=== PATIENT | male | born 1955 | race Caucasian/White ===

== ENCOUNTER 2022-12-25 08:26 | Inpatient (IN) | payer MEDICARE ==
[2022-12-25] MEDS ORDERED: Ipratropium/Albuterol 3 ML NEB NEB PRN (10:56)
[2022-12-25] MEDS ORDERED: Calcium Carbonate 500 MG ChewTAB PO PRN (10:58)
[2022-12-25] MEDS ORDERED: Senokot S 8.6-50 MG TAB PO PRN (10:58)
[2022-12-25] MEDS ORDERED: Acetaminophen 325 MG TAB PO PRN (10:58)
[2022-12-25] MEDS ORDERED: Lorazepam 1 MG TAB PO PRN (11:01)
[2022-12-25] MEDS ORDERED: Nicotine 14 MG PATCH TD PRN (11:01)
[2022-12-25] MEDS ORDERED: Lorazepam 2 MG/ML VIAL IM PRN (11:01)
[2022-12-25] MEDS ORDERED: Nitroglycerin 0.4 MG TAB (25 Tab Bottle) SL PRN (11:03)
[2022-12-25] MEDS ORDERED: Electrolyte Replacement Protocol 1 EACH FS SCH (11:15)
[2022-12-25] MEDS ORDERED: Folic Acid 1 MG TAB PO SCH (11:30)
[2022-12-25] MEDS ORDERED: Multivit, Therapeutic 1 TAB PO SCH (12:00)
[2022-12-25 12:05] LABS: Anion Gap 15 mmol/L (10-20); BUN (Urea Nitrogen) 7 mg/dL (8.4-25.7); Calc. Creatinine Clearance 0 mL/min (70-130); Calcium 9.3 mg/dL (7.8-10.44); Carbon Dioxide 23 mmol/L (23-31); Chloride 89 mmol/L (98-107); Estimated GFR 100; Glucose 140 mg/dL (80-115); Magnesium 2.1 mg/dL (1.6-2.6); Potassium 3.9 mmol/L (3.5-5.1); Sodium 123 mmol/L (136-145)
[2022-12-25 12:08] LABS: Troponin I Less than 0.010 ng/mL (< 0.028)
[2022-12-25] MEDS ORDERED: Magnesium 2 GM/50 ML(in water) 2 GM in Premix Bag 1 BAG IVPB SCH (12:15)
[2022-12-25] MEDS ORDERED: Electrolyte Replacement Protocol FS PRN (12:15)
[2022-12-25] MEDS: Ipratropium/Albuterol 3 ML NEB NEB SCH ×2 (12:29→18:55)
[2022-12-25] MEDS ORDERED: Sodium Chloride 0.9% 1,000 ML IV SCH (12:30)
[2022-12-25] MEDS: Thiamine HCl 200 MG/2 ML VIAL SLOW IVP SCH (12:56)
[2022-12-25] MEDS: Saccharomyces boulardii 250 MG CAP PO SCH (13:00)
[2022-12-25 15:30] LABS: Legionella Urinary Ag Negative (Negative)
[2022-12-25 15:31] LABS: Strep pneumo Urine Ag NEGATIVE (NEGATIVE)
[2022-12-25 18:04] LABS: Anion Gap 16 mmol/L (10-20); BUN (Urea Nitrogen) 12 mg/dL (8.4-25.7); Calc. Creatinine Clearance 0 mL/min (70-130); Calcium 9.4 mg/dL (7.8-10.44); Carbon Dioxide 21 mmol/L (23-31); Chloride 90 mmol/L (98-107); Estimated GFR 95; Glucose 194 mg/dL (80-115); Potassium 4.1 mmol/L (3.5-5.1); Sodium 123 mmol/L (136-145)
[2022-12-25] MEDS: Mometasone/Formoterol 200/5 60 PUFF INH SCH (18:56)
[2022-12-25 20:13] VITALS: BMI 19.6
[2022-12-25] MEDS: guaiFENesin ER 600 MG TAB PO SCH (20:19)
[2022-12-25] MEDS: Amlodipine 5 MG TAB PO SCH (20:19)
[2022-12-25] MEDS ORDERED: Famotidine 20 MG TAB PO SCH (21:00)
[2022-12-25 21:34] LABS: Anion Gap 16 mmol/L (10-20); BUN (Urea Nitrogen) 15 mg/dL (8.4-25.7); Calc. Creatinine Clearance 83 mL/min (70-130); Calcium 8.9 mg/dL (7.8-10.44); Carbon Dioxide 19 mmol/L (23-31); Chloride 91 mmol/L (98-107); Estimated GFR 99; Glucose 216 mg/dL (80-115); Phosphorus 2.6 mg/dL (2.3-4.7); Potassium 3.8 mmol/L (3.5-5.1); Sodium 122 mmol/L (136-145)
[2022-12-25] MEDS ORDERED: Sodium Chloride 1 GM TAB PO SCH (21:45)
[2022-12-26] MEDS: Ipratropium/Albuterol 3 ML NEB NEB SCH ×4 (00:41→18:42)
[2022-12-26 05:59] LABS: ALT (SGPT) 7 U/L (8-55); AST (SGOT) 13 U/L (5-34); Albumin 3.7 g/dL (3.4-4.8); Alkaline Phosphatase 44 U/L (40-110); Anion Gap 14 mmol/L (10-20); BUN (Urea Nitrogen) 9 mg/dL (8.4-25.7); Bilirubin, Total 0.3 mg/dL (0.2-1.2); Calc. Creatinine Clearance 87 mL/min (70-130); Calcium 8.8 mg/dL (7.8-10.44); Carbon Dioxide 23 mmol/L (23-31); Chloride 94 mmol/L (98-107); Cholesterol 100 mg/dl (< 200 Desired); Estimated GFR 100; Globulin 2.6 g/dL (2.4-3.5); Glucose 133 mg/dL (80-115); HDL Cholesterol 49 mg/dL (>60 Neg Risk); LDL Cholesterol, Calculated 46 mg/dL; Potassium 3.6 mmol/L (3.5-5.1); Protein, Total 6.3 g/dL (5.8-8.1); Sodium 127 mmol/L (136-145); Triglycerides 24 mg/dL (Less than 150)
[2022-12-26 06:09] LABS: #Lymphocytes 0.8 thou/uL (1.20-3.40); #Monocytes 1.3 thou/uL (0.11-0.59); #Neutrophils 12.7 thou/uL (1.40-6.50); %Basophils 0.2 % (0.0-1.0); %Eosinophils 0.1 % (0.0-10.0); %Lymphocytes 5.7 % (21.0-51.0); %Monocytes 8.8 % (0.0-10.0); %Neutrophils 85.2 % (42.0-75.0); Mean Corpuscular HGB CONC 35.5 g/dL (32.0-36.0); Mean Corpuscular Hemoglobin 34.4 pg (27.0-31.0); Mean Corpuscular Volume 96.7 fl (78.0-98.0); Mean Platelet Volume 6.6 fL (7.4-10.4); Platelet Count 331 10x3/uL (130-400); RBC Distribution Width 11.5 % (11.5-14.5); Red Blood Cell (RBC) Count 3.49 mill/uL (4.70-6.10); White Blood Cell (WBC) Count 14.9 10x3/uL (4.8-10.8)
[2022-12-26] MEDS: Mometasone/Formoterol 200/5 60 PUFF INH SCH ×2 (07:45→18:45)
[2022-12-26] MEDS: Aspirin 81 mg Enteric Coated Tablet PO SCH (08:30)
[2022-12-26] MEDS: Amlodipine 5 MG TAB PO SCH ×2 (08:31→20:40)
[2022-12-26] MEDS: guaiFENesin ER 600 MG TAB PO SCH ×2 (08:31→20:41)
[2022-12-26] MEDS: Multivit, Therapeutic 1 TAB PO SCH (08:31)
[2022-12-26] MEDS: Folic Acid 1 MG TAB PO SCH (08:31)
[2022-12-26] MEDS ORDERED: Sodium Chloride 1 GM TAB PO SCH ×2 (09:00→19:30)
[2022-12-26 10:10] LABS: Anion Gap 13 mmol/L (10-20); BUN (Urea Nitrogen) 8 mg/dL (8.4-25.7); Calc. Creatinine Clearance 87 mL/min (70-130); Carbon Dioxide 25 mmol/L (23-31); Chloride 93 mmol/L (98-107); Estimated GFR 100; Glucose 114 mg/dL (80-115); Potassium 3.7 mmol/L (3.5-5.1); Sodium 127 mmol/L (136-145)
[2022-12-26] MEDS: Thiamine HCl 200 MG/2 ML VIAL SLOW IVP SCH (11:47)
[2022-12-26 15:24] LABS: Anion Gap 15 mmol/L (10-20); BUN (Urea Nitrogen) 11 mg/dL (8.4-25.7); Calc. Creatinine Clearance 83 mL/min (70-130); Calcium 8.9 mg/dL (7.8-10.44); Carbon Dioxide 23 mmol/L (23-31); Chloride 93 mmol/L (98-107); Estimated GFR 99; Glucose 112 mg/dL (80-115); Potassium 3.7 mmol/L (3.5-5.1); Sodium 127 mmol/L (136-145)
[2022-12-26] MEDS: Saccharomyces boulardii 250 MG CAP PO SCH (15:39)
[2022-12-27] MEDS: Amlodipine 5 MG TAB PO SCH (08:46)
[2022-12-27] MEDS: Aspirin 81 mg Enteric Coated Tablet PO SCH (08:46)
[2022-12-27] MEDS: guaiFENesin ER 600 MG TAB PO SCH (08:46)
[2022-12-27] MEDS: Multivit, Therapeutic 1 TAB PO SCH (08:46)
[2022-12-27] MEDS: Folic Acid 1 MG TAB PO SCH (08:46)
[2022-12-27] MEDS: Ipratropium/Albuterol 3 ML NEB NEB SCH (09:00)
[2022-12-27] MEDS: Mometasone/Formoterol 200/5 60 PUFF INH SCH (09:01)
[2022-12-27 09:04] VITALS: TEMP 97.4
[2022-12-27] MEDS ORDERED: Lorazepam 1 MG TAB PO PRN (11:01)
[2022-12-27] MEDS: Thiamine HCl 200 MG/2 ML VIAL SLOW IVP SCH (11:52)
[2022-12-27] MEDS: Saccharomyces boulardii 250 MG CAP PO SCH (14:19)
[2022-12-27 14:35] VITALS: BP 128/62
[2022-12-28] MEDS ORDERED: Lorazepam 0.5 MG TAB PO PRN (11:01)
[2022-12-28] MEDS ORDERED: Thiamine 100 MG TAB PO SCH (12:00)
== END 2022-12-27 14:38 | disposition home or self-care (01) | DRG 871 ==
LOC: 2SW 10:31 → OBSVTOIN 10:58 → T4-A 12-26 15:19
PROVIDERS: ADMIT Internal Medicine; ATTEND Internal Medicine
DX: A41.9 Sepsis, unspecified organism (principal); J18.9 Pneumonia, unspecified organism; J96.01 Acute respiratory failure with hypoxia; E87.1 Hypo-osmolality and hyponatremia; I50.32 Chronic diastolic (congestive) heart failure; F10.20 Alcohol dependence, uncomplicated; F17.210 Nicotine dependence, cigarettes, uncomplicated; E87.5 Hyperkalemia; R07.89 Other chest pain; Z88.5 Allergy status to narcotic agent; Z88.0 Allergy status to penicillin; Z79.899 Other long term (current) drug therapy; Z82.49 Family history of ischemic heart disease and other diseases of the circulatory system
CPT/HCPCS: 36415; 36416; 80053; 80061; 83735; 83930; 84100; 84443; 85025; 87449; 87631; 87899; 93306; 94640; J1956; J3411; J3475; J7050; J7620